=== PATIENT | female | born 1935 | race Caucasian/White ===

== ENCOUNTER 2017-09-13 06:54 | Emergency (ER) | payer OTHER ==
[~2017-09-13] VITALS: Ht 162.6 cm; Wt 70.3 kg
[~2017-09-13 06:54] MED LIST: ADULT LOW DOSE81 MG PO; AMOXICILLIN 50500 M1 PO; ASPRIMOX 325 M325 MG PO; AZITHROMYCIN 2250 MG PO; CALCIUM OYSTER500 MG; CALCIUM PO; CENTRUM SILVER1 EAC1 PO; CRESTOR10 MG PO; FISH OIL 1,0001 EAC5; FISHOIL PO; FLECAINIDE ACE100 MG PO; KLOR-CON 1010 MEQ PO; MULTIVITAMINS; POTASSIUM20; PRADAXA150 MG PO; PROPAFENONE HC300 MG PO; PROZAC 20 MG20 M1 PO; REQUIP 1 MG TABL1 M1 PO; RESTORIL30 MG PO; SYNTHROID50 MCG PO; TOPROL XL25 MG PO; VESICARE10 M1 PO
[2017-09-13] MEDS ORDERED: PACERONE 200 M200 M1 PO (07:08)
[2017-09-13] MEDS ORDERED: PROZAC20 MG PO (07:08)
[2017-09-13] MEDS ORDERED: RESTORIL30 MG PO (07:09)
[2017-09-13] MEDS ORDERED: XARELTO20 MG PO (07:09)
[2017-09-13] MEDS ORDERED: NORCO 5-325 TA1 EACH PO (07:41)
[2017-09-13 08:23] VITALS: BP 150/75
== END 2017-09-13 08:30 | disposition home or self-care (01) ==
LOC: ER 06:54
DX: S62.101A Fracture of unspecified carpal bone, right wrist, initial encounter for closed fracture (principal); M79.7 Fibromyalgia; Z90.49 Acquired absence of other specified parts of digestive tract; W10.8XXA Fall (on) (from) other stairs and steps, initial encounter; Y93.01 Activity, walking, marching and hiking; Y92.89 Other specified places as the place of occurrence of the external cause; Y99.8 Other external cause status

== ENCOUNTER 2018-08-20 05:53 | Emergency (ER) | payer OTHER ==
[~2018-08-20] VITALS: Ht 165.1 cm; Wt 71.2 kg
[~2018-08-20 05:53] MED LIST changes: +GABAPENTIN 100100 MG PO; +MORPHINE SULFAT15 M3 PO; +NORCO 5-325 TA1 EACH PO; +PACERONE 200 M200 M1 PO; +PREDNISONE 20 M20 MG PO; +PROZAC20 MG PO; +XARELTO20 MG PO
[2018-08-20] MEDS ORDERED: NORCO 7.5-3251 EACH PO (07:04)
[2018-08-20] MEDS ORDERED: PREDNISONE 20 M20 MG PO (07:04)
[2018-08-20 07:21] VITALS: BP 178/76
== END 2018-08-20 07:38 | disposition home or self-care (01) ==
LOC: ER 05:53
DX: M54.12 Radiculopathy, cervical region (principal)

== ENCOUNTER 2019-02-21 00:01 | Inpatient (IN) | payer OTHER ==
[~2019-02-21] VITALS: Ht 165.1 cm; Wt 71.5 kg
--- NOTE | ~2019-02-21 | HC ---
[facility] [place] [address] CONSULTATION Name: MINH THOMAS Room #: 429-P [facility] IN M.R.#: [id number] Admission: 02/21/19 ������������������ Attend Phys: Darek Carrera MD Discharge: ������������������ Date of : 33 Report #: [id number] THIS REPORT FOR: //name// CC: Darek Turpincaridad Graciaaker DATE OF SERVICE: 02/27/2019 HISTORY OF PRESENT ILLNESS: The patient is an 83-year-old white female, originally admitted to [facility] on 02/21/2019 with lower abdominal pain. She was diagnosed with small-bowel obstruction. She was noted to have atrial fibrillation converted to normal sinus rhythm. She developed acute hypoxic respiratory failure, likely community-acquired pneumonia. She was noted to complain of right-sided weakness and has been sent down for a CT scan of the brain. She is unable to undergo an MRI scan due to a prior defibrillator. She has had a significant decline in her functional abilities and we are seeing her in rehabilitation medicine consultation. PAST MEDICAL HISTORY: Includes bleeding gastric ulcer, atrial fibrillation, heart valve repair, depression, appendectomy, colitis, and hyperlipidemia. MEDICATIONS: Please see the full medication listing as noted. HABITS: No history of tobacco or alcohol abuse. SOCIAL HISTORY: She lives in an apartment with her , Femi Vail, no steps. She did not utilize gait aids within the apartment, but did use a walker out to the dining area. REVIEW OF SYSTEMS: No current complaints of chest pain, shortness of breath or abdominal discomfort. Denies any fever or chills. She has some weakness at the right side as noted. PHYSICAL EXAMINATION: GENERAL: An 83-year-old white female, in no obvious distress. She is alert. VITAL SIGNS: Last recorded temperature is 97.6, pulse 66, respirations 17, blood pressure 141/58. NEUROMUSCULOSKELETAL: The patient is alert. No obvious visual field neglect to confrontation. Facies appeared symmetric. She does have considerable ecchymosis over her anterior chest and neck area. She has the incision, which is well healed on the left superior chest from the defibrillator. Functional range of motion of the upper extremities. Strength appears to be a grade 4-/5 in both right upper and left upper extremity. DTRs are trace. Lower extremities with no focal calf swelling. She has an old right knee incision that is well healed. Strength is probably grade 4-/5. DTRs are trace to 1. Functionally, she was mod assist with sit to stand. Gait was 40 feet min assist [address] [address] CONSULTATION Name: MINH THMOAS Room #: 429-P [facility] IN M.R.#: [id number] Admission: 02/21/19 ������������������ Attend Phys: Darek Carrera MD Discharge: ������������������ Date of : 33 Report #: [id number] with a front-wheeled walker as of 02/24/2019. She is currently on 2 liters nasal prong O2. ASSESSMENT: An 83-year-old white female with the following problem list: 1. Right-sided weakness, question clinical cerebrovascular accident. Workup is underway and Neurology has been consulted. 2. Small-bowel obstruction. 3. Acute hypoxic respiratory failure with likely pneumonia. 4. Atrial fibrillation with conversion to normal sinus rhythm. 5. History of gastric bleeding ulcer. 6. Depression and anxiety. 7. History of colitis. 8. Hyperlipidemia. 9. Heart valve repair. PLAN: Workup is underway as noted. We have multiple publicity consultant physicians that are following along with her with Infectious Disease, Surgery, Internal Medicine, and Neurology. She certainly may be a candidate for a short acute in-hospital inpatient rehabilitation stay to further maximize her functional independence while the multiple publicity consultant physicians can follow along with her while she is on the rehab son. We will be glad to follow along with you regarding her rehab therapy needs. Discussion with the patient and her . ��������������������������������������������� ���������������������������������������� By: ��������������������������������������������� 1422 0557 Young Arellano MD /nt
[~2019-02-21 00:01] MED LIST changes: +NORCO 7.5-3251 EACH PO
[2019-02-21 00:05] VITALS: BP 136/63
[2019-02-21 00:35] LABS: ABSOLUTE NEUTROPHILS 7.9 thou/uL (1.4-8.2); BASOPHILS 0.6 % (0.0-2.0); EOSINOPHILS 0.7 % (0.0-3.0); HEMATOCRIT 41.3 % (37.0-47.0); LYMPHOCYTES 7.9 % (24.0-44.0); MCH 29.1 pg (26.0-34.0); MCHC 33.9 g/dL (28.0-37.0); MONOCYTES 5.3 % (1.0-8.0); PLATELET COUNT 204 thou/uL (150-400); POLYS 85.5 % (36.0-66.0); RDW 16.9 % (10.5-14.5); WBC 9.2 thou/uL (4.0-11.0)
[2019-02-21 00:42] LABS: URINE BILIRUBIN NEGATIVE (Negative); URINE BLOOD NEGATIVE (Negative); URINE CLARITY CLEAR; URINE COLOR YELLOW; URINE GLUCOSE-RANDOM* NEGATIVE (Negative); URINE KETONES TRACE (Negative); URINE LEUKOCYTES TRACE (Negative); URINE NITRITE NEGATIVE (Negative); URINE PROTEIN (DIPSTICK) NEGATIVE (Negative)
[2019-02-21 00:47] LABS: CALCIUM 9.9 mg/dL (8.5-10.1); CREATININE 0.8 mg/dL (0.6-1.0); POTASSIUM 3.6 mmol/L (3.5-5.1)
[2019-02-21 00:53] LABS: ALBUMIN 3.9 g/dL (3.4-5.0); TOTAL BILIRUBIN 0.7 mg/dL (<0.1-1.0); TOTAL PROTEIN 7.5 g/dL (6.4-8.2)
[2019-02-21 04:42] VITALS: BP 143/70
--- NOTE | 2019-02-21 07:41 | EKG ---
[place] [address] [facility] [place] [address] ELECTROCARDIOGRAM REPORT Name: MINH THOMAS Room #: 357-P ADM IN M.R.#: [id number] ������������������ Admission: 02/21/19 ������������������ Attend Phys: Jessie Murrell Discharge: ������������������ Date of : 31 Report #: [id number] ����������������������������������������������������������������� [id number] THIS REPORT FOR: //name// 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: ROLA : 1935 Requested By: Hawa Aguirre Order Number: [id number] MD: Jose Alvarez Measurements Intervals [place] Rate: 67 P: 262 TN: 229 QRS: -54 QRSD: 109 T: 84 QT: 453 QTc: 479 Interpretive Statements Sinus or ectopic atrial rhythm Prolonged TN interval Incomplete RBBB and LAFB Compared to ECG 05/27/2018 06:51:46 Ectopic atrial rhythm now present Incomplete right bundle-branch block now present RSR' in V1 or V2 now present QT interval has lengthened Electronically Signed On 02-21-2019 7:41:37 CDT by Jose Alvarez [email or web address] ��������������������������������������������� <ELECTRONICALLY SIGNED> ���������������������������������������� By: Jose Alvarez MD, [facility] ��������������������������������������������� 02/21/19 0741 0021 0021 Jose Alvarez MD, [facility] /EPI
[2019-02-21 16:38] VITALS: BP 149/75
[2019-02-21 20:22] VITALS: BP 150/64
[2019-02-22 03:32] VITALS: BP 109/45
[2019-02-22 05:45] LABS: HEMATOCRIT 42.3 % (37.0-47.0); HEMOGLOBIN 14.3 gm/dL (12.0-15.0); MCH 29.4 pg (26.0-34.0); MCHC 33.9 g/dL (28.0-37.0); MCV 86.8 fL (80.0-100.0); RBC 4.87 mil/uL (4.20-5.00); RDW 16.7 % (10.5-14.5); WBC 3.8 thou/uL (4.0-11.0)
[2019-02-22 06:00] LABS: CALCIUM 8.7 mg/dL (8.5-10.1); CREATININE 0.6 mg/dL (0.6-1.0); POTASSIUM 3.5 mmol/L (3.5-5.1)
[2019-02-22 07:19] LABS: BE(vivo) -8.8 mmol/L (-2 to +3); HCO3 17.3 mmol/L (22.0-26.0); PCO2 38.3 mmHg (35.0-45.0); sO2 85.2 % (92.0-98.0)
[2019-02-22 07:21] LABS: PO2 55.6 mmHg (80.0-100.0); pH 7.273 (7.360-7.450)
[2019-02-22 08:06] VITALS: BP 153/73; BP 96/44
--- NOTE | 2019-02-22 08:17 | EKG ---
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: ALYSSA : 1935 Requested By: Gordon Farley Order Number: [id number] MD: Salinas Cardenas Measurements Intervals [place] Rate: 70 P: 210 NH: 256 QRS: -71 QRSD: 142 T: 11 QT: 563 QTc: 608 Interpretive Statements Sinus or ectopic atrial rhythm Prolonged [place] interval RBBB and LAFB Compared to ECG 02/21/2019 00:21:21 Incomplete right bundle-branch block no longer present Electronically Signed On 02-22-2019 8:17:05 CDT by Salinas Cardenas [email or web address] ��������������������������������������������� <ELECTRONICALLY SIGNED> ���������������������������������������� By: Salinas Cardenas MD ��������������������������������������������� 02/22/19 0817 0 0 Salinas Cardenas MD /EPI
[2019-02-22 08:34] LABS: BE(vivo) -5.2 mmol/L (-2 to +3); HCO3 20.4 mmol/L (22.0-26.0); PCO2 40.4 mmHg (35.0-45.0); PO2 123.1 mmHg (80.0-100.0); sO2 98.2 % (92.0-98.0)
[2019-02-22 08:36] LABS: pH 7.322 (7.360-7.450)
--- NOTE | 2019-02-22 16:01 | 2DMMODE ---
[facility] [place] [address] 2 D/M-MODE ECHOCARDIOGRAM Name: MINH THOMAS Room #: 357-P ADM IN ..#: [id number] ������������� Admission: 02/21/19 ������������� Attend Phys: Darek Carrera MD Discharge: ��� ������������� ��� Date of : 31 Date of Service: 02/22/19 1601 �� Report #: [id number] �������� ��������������������������������������������[id number] THIS REPORT FOR: //name// APPROVED REPORT Study performed: 02/22/2019 15:03:45 EXAM: Comprehensive 2D, Doppler, and color-flow Echocardiogram Status: routine BSA: 1.78 HR: 59 bpm BP: 96/44 mmHg Rhythm: Pacemaker Other Information Study Quality: Fair Technically limited study due to body habitus, rib artifact. Indications Short of breath. Hx: MV repair, defibrillator, Afib. 2D Dimensions RVDd: 34.80 mm IVSd: 9.61 (7-11mm) LVOT Diam: 19.39 (18-24mm) LVDd: 43.01 mm PWd: 9.75 (7-11mm) Ascending Ao: 32.60 (22-36mm) LVDs: 26.19 (25-40mm) Aortic Root: 30.41 mm Volumes Left Atrial Volume (Systole) Single Plane 4CH: 63.69 mL Single Plane 2CH: 64.80 mL LA ESV Index: 39.00 mL/m2 Aortic Valve AoV Peak Miko.: 2.41 m/s AO Peak Gr.: 23.26 mmHg Mitral Valve MV Decel. Time: 340.14 ms MV PHT: 97.73 ms MVA (PHT): 2.25 cm2 [facility] [place] [address] 2 D/M-MODE ECHOCARDIOGRAM Name: MINH THOMAS Room #: 357-P ADM IN .R.#: [id number] ������������� Admission: 02/21/19 ������������� Attend Phys: Darek Carrera MD Discharge: ��� ������������� ��� Date of : 31 Date of Service: 02/22/19 1601 �� Report #: [id number] �������� ��������������������������������������������[id number] Pulmonary Valve PV Peak Miko.: 0.90 m/s PV Peak Gr.: 3.22 mmHg Tricuspid Valve TR Peak Miko.: 3.47 m/s TR Peak Gr.: 48.05 mmHg Left Ventricle The left ventricle is normal size. There is normal LV segmental wall motion. There is normal left ventricular wall thickness. Possible LVOT obstruction caused by systolic anterior motion of the mitral valve leaflet. Difficult to accurately assess gradients vs. mitral regurgitation jet. Left ventricular systolic function is hyperdynamic. LVEF is 65-70%. This study is not technically sufficient to allow evaluation of the LV diastolic function. Right Ventricle The right ventricle is normal size. The right ventricular systolic function is normal. Device lead is present in the right ventricle. Atria Left atrium is mildly dilated. Right atrium is mildly dilated. Aortic Valve Aortic valve is trileaflet, mildly thickened and calcified. Mild aortic regurgitation. There is no aortic valvular stenosis. Mitral Valve History of MV repair. Mean pressure gradient of 5mmHg. Mild to moderate mitral regurgitation. Tricuspid Valve The tricuspid valve is normal in structure. Mild to moderate tricuspid regurgitation. Estimated PAP 48mmHg plus the right pressure. Pulmonic Valve The pulmonary valve is normal in structure. Trace pulmonic regurgitation. Great Vessels The aortic root is normal in size. The ascending aorta is normal in size. IVC is not well visualized. Pericardium [facility] [address] [place] [address] 2 D/M-MODE ECHOCARDIOGRAM Name: MINH THMOAS Room #: 357-P ADM IN M.R.#: [id number] ������������� Admission: 02/21/19 ������������� Attend Phys: Darek Carrera MD Discharge: ��� ������������� ��� Date of : 31 Date of Service: 02/22/19 1601 �� Report #: [id number] �������� ��������������������������������������������[id number] There is no pericardial effusion. <Conclusion> The left ventricle is normal size. LVEF is 65-70%. Device lead is present in the right ventricle. Left atrium is mildly dilated. Right atrium is mildly dilated. Aortic valve is trileaflet, mildly thickened and calcified. Mild aortic regurgitation. History of MV repair. Mean pressure gradient of 5mmHg. Mild to moderate mitral regurgitation. The tricuspid valve is normal in structure. Mild to moderate tricuspid regurgitation. Estimated PAP 48mmHg plus the right pressure. The pulmonary valve is normal in structure. Trace pulmonic regurgitation. There is no pericardial effusion. ��������������������������������������������� <ELECTRONICALLY SIGNED> ���������������������������������������� By: Homer Benson MD ��������������������������������������������� 02/22/191600 00 00 Homer Benson MD /INF
[2019-02-22 19:25] VITALS: BP 98/40
[2019-02-23 03:35] VITALS: BP 107/40
[2019-02-23 07:16] VITALS: BP 106/35
[2019-02-23 15:13] VITALS: BP 116/48
[2019-02-23 19:30] VITALS: BP 124/50
[2019-02-24 04:00] VITALS: BP 132/49
[2019-02-24 07:10] VITALS: BP 140/70
[2019-02-24 13:13] VITALS: BP 138/59
[2019-02-24 16:45] LABS: HEMATOCRIT 32.9 % (37.0-47.0); HEMOGLOBIN 11.1 gm/dL (12.0-15.0); MCH 29.1 pg (26.0-34.0); MCHC 33.7 g/dL (28.0-37.0); MCV 86.1 fL (80.0-100.0); RBC 3.82 mil/uL (4.20-5.00); RDW 16.6 % (10.5-14.5); WBC 7.7 thou/uL (4.0-11.0)
[2019-02-24 16:52] LABS: CALCIUM 8.6 mg/dL (8.5-10.1); CREATININE 0.6 mg/dL (0.6-1.0); MAGNESIUM 1.8 mg/dL (1.8-2.4); POTASSIUM 3.2 mmol/L (3.5-5.1)
[2019-02-24 16:53] VITALS: BP 120/54
[2019-02-24 19:15] VITALS: BP 144/64
[2019-02-25 06:07] LABS: HEMOGLOBIN 10.6 gm/dL (12.0-15.0); MCH 29.3 pg (26.0-34.0); MCHC 34.3 g/dL (28.0-37.0); MCV 85.4 fL (80.0-100.0); RBC 3.63 mil/uL (4.20-5.00); RDW 16.4 % (10.5-14.5)
[2019-02-25 06:13] LABS: CALCIUM 8.5 mg/dL (8.5-10.1); CREATININE 0.5 mg/dL (0.6-1.0); MAGNESIUM 1.9 mg/dL (1.8-2.4); POTASSIUM 3.5 mmol/L (3.5-5.1)
[2019-02-25 07:40] VITALS: BP 120/56
[2019-02-25 11:00] VITALS: BP 135/61
[2019-02-25 16:17] VITALS: BP 132/47
[2019-02-25 20:30] VITALS: BP 141/55
[2019-02-26 04:55] VITALS: BP 135/57
[2019-02-26 08:17] VITALS: BP 147/61
[2019-02-26 09:15] VITALS: BP 147/61
--- NOTE | 2019-02-26 09:29 | HC ---
[facility] [place] [address] CONSULTATION Name: MINH THOMAS Room #: 429-P [facility] IN M.R.#: [id number] Admission: 02/21/19 ������������������ Attend Phys: Darek Carrera MD Discharge: ������������������ Date of : 33 Report #: [id number] THIS REPORT FOR: //name// CC: Darek Turpincaridad Graciaaker DATE OF SERVICE: 02/23/2019 REASON FOR CONSULTATION: Evaluate pneumonia. HISTORY OF PRESENT ILLNESS: This is an 83-year-old who presents to the Emergency Room with a 3-day history of abdominal pain, which was diffuse and persistent, associated with radiation to her back. She rated the pain at most up to a 7. She had 2 episodes of nausea and vomiting. She vomited once in her bed. She did not describe any gross aspiration. She has had some bowel movements without blood or diarrhea. She is anticoagulated on Xarelto previously for her heart valve repair. However, she has been off it for approximately 2 months. During this time, she has had no cough or sputum production. Cough started on the day of admission. She is not typically on oxygen at home, now on 3 liters. She has had no pleuritic chest pain. No hemoptysis. Following admission, she was placed on azithromycin and ceftriaxone. Further evaluation showed evidence of a partial small-bowel obstruction. She denies any dysuria or frequency. She has had no rash or decubiti. She has noticed no lymphadenopathy. No other bleeding issues. No psychiatric issues, seizure disorder or stroke. REVIEW OF SYSTEMS: A 10-point review of systems is negative other than what is described above. ALLERGIES: None known. MEDICATIONS: As noted on her MAR including ceftriaxone, azithromycin. PAST MEDICAL HISTORY: Cervical radiculopathy, fibromyalgia, gastric ulcer, appendectomy, colitis, cataract surgery, right knee surgery, finger surgery, defibrillator placement, atrial fibrillation, depression, anxiety, hypothyroidism, heart valve repair. FAMILY HISTORY: Noncontributory. SOCIAL HISTORY: Nonsmoker, minimal alcohol intake. PHYSICAL EXAMINATION: VITAL SIGNS: Afebrile and hemodynamically stable. Alert and cooperative. On 3 liters of oxygen per nasal cannula. SKIN: Without rash or decubitus. She had ecchymosis involving her right chin [facility] [address] [place] [address] CONSULTATION Name: MINH THOMAS Room #: 429-P ADM IN M.R.#: [id number] Admission: 02/21/19 ������������������ Attend Phys: Darek Carrera MD Discharge: ������������������ Date of : 33 Report #: [id number] and neck region from a previous fall several weeks ago. HEENT: Eyes, without scleral icterus. Mouth without mucositis. NECK: Supple, with no thyromegaly or mass. No JVD. LUNGS: Coarse sounds posterior in the bases bilaterally. No consolidation. HEART: Regular, without murmur, gallop or rub. ABDOMEN: Moderately distended without mass or hepatosplenomegaly. No guarding or rebound. GENITAL AND RECTAL: Not performed. BACK: With no CVA tenderness or spinal tenderness. EXTREMITIES: Without clubbing, cyanosis or edema. NEUROLOGIC: Cranial nerves intact. Strength in her upper and lower extremities was normal. Sensation in the upper and lower extremities normal. Mood normal. LABORATORY STUDIES: CT scan of the chest showed bilateral lower lobe infiltrates with a right upper lobe infiltrate. Abdomen showed evidence of ileus. Procalcitonin less than 0.5. BNP 631. Hemoglobin 14.3, white count 13.8, platelet count 245,000. Sodium 138, potassium 3.5, bicarbonate 24, creatinine 0.6, AST 66, ALT 72, bilirubin 0.7. Lipase 52. Urinalysis unremarkable. Blood cultures are negative. IMPRESSION: An 83-year-old with partial small-bowel obstruction and pneumonia. I suspect aspiration is the etiology of her pulmonary infiltrates. She did have an episode of vomiting prior to her admission. It appears that the cough and respiratory complaints followed her abdominal obstruction symptoms. In addition, has underlying hypothyroidism, valvular repair, atrial fibrillation, anxiety and depression, controlled. RECOMMENDATIONS: We will continue with azithromycin and switch ceftriaxone to Unasyn. This will cover intra-abdominal pathogens as well as good aspiration coverage. Await sputum culture, blood cultures and also check urine antigens for completeness. Await surgical followup regarding her GI issues. ��������������������������������������������� <ELECTRONICALLY SIGNED> ���������������������������������������� By: Beryr Manuel MD ��������������������������������������������� 02/26/19 0929 [id number] Berry Manuel MD /nt
[2019-02-26 19:37] VITALS: BP 139/51
[2019-02-27 04:22] VITALS: BP 141/56
[2019-02-27 07:33] VITALS: BP 141/58
[2019-02-27 16:34] VITALS: BP 121/47
[2019-02-27 20:24] VITALS: BP 116/44
[2019-02-28 06:06] VITALS: BP 128/86
[2019-02-28 07:45] VITALS: BP 122/54
[2019-02-28 10:47] LABS: MCH 28.7 pg (26.0-34.0); MCHC 33.5 g/dL (28.0-37.0); MCV 85.8 fL (80.0-100.0); RBC 4.19 mil/uL (4.20-5.00); RDW 16.4 % (10.5-14.5); WBC 6.1 thou/uL (4.0-11.0)
[2019-02-28 11:08] LABS: CALCIUM 9.1 mg/dL (8.5-10.1); CREATININE 0.7 mg/dL (0.6-1.0); MAGNESIUM 1.9 mg/dL (1.8-2.4)
[2019-02-28 16:45] VITALS: BP 115/37
[2019-02-28 20:00] VITALS: BP 120/54
[2019-03-01 04:30] VITALS: BP 118/50
[2019-03-01 05:54] LABS: HEMATOCRIT 32.4 % (37.0-47.0); HEMOGLOBIN 11.1 gm/dL (12.0-15.0); MCHC 34.2 g/dL (28.0-37.0); MCV 84.9 fL (80.0-100.0); RBC 3.82 mil/uL (4.20-5.00); RDW 16.5 % (10.5-14.5); WBC 4.8 thou/uL (4.0-11.0)
[2019-03-01 05:56] LABS: CALCIUM 8.5 mg/dL (8.5-10.1); CREATININE 0.6 mg/dL (0.6-1.0)
[2019-03-01 08:26] VITALS: BP 118/50
[2019-03-01 11:59] LABS: TSH 5.993 uIU/mL (0.358-3.740)
[2019-03-01] MEDS ORDERED: AUGMENTIN 875-1 EACH PO (14:00)
[2019-03-01] MEDS ORDERED: ALBUTEROL2.5 MG/31 INH (14:00)
[2019-03-01] MEDS ORDERED: ASPIR 8181 MG PO (14:00)
[2019-03-01] MEDS ORDERED: MUCINEX600 MG PO (14:00)
[2019-03-01] MEDS ORDERED: MIRALAX17 GM PO (14:05)
--- NOTE | 2019-03-01 14:33 | HC ---
[facility] [address] CONSULTATION Name: MINH THOMAS Room #: 429-P [facility] IN M.R.#: [id number] Admission: 02/21/19 ������������������ Attend Phys: Darek Carrera MD Discharge: ������������������ Date of : 33 Report #: [id number] THIS REPORT FOR: //name// CC: Darek Craftayse Plata DATE OF SERVICE: 02/27/2019 HISTORY OF PRESENT ILLNESS: This is an 83-year-old female patient who was evaluated by me for right-sided weakness. The patient initially indicated that she is having weakness in the right leg, but then indicated she has weakness in the right upper extremity also. I reviewed the patient's record and it looks like she was having abdominal and back pain and generalized weakness when she was admitted. It was associated with sleep difficulty. She has bruises on her neck and she indicated that happened when this patient hit something. REVIEW OF SYSTEMS: Indicates that she has a history of atrial fibrillation, but looks like she has stopped taking her anticoagulation a few weeks ago for some reason. She does have a defibrillator. She has a history of fibromyalgia, heart valve problems, bleeding ulcer. This was her relevant 14-point review of system. PAST MEDICAL HISTORY: As per record is positive for atrial fibrillation. EKG in the Emergency Room demonstrated sinus rhythm. FAMILY HISTORY: Negative for early age stroke. SOCIAL HISTORY: She indicates she does not smoke. PHYSICAL EXAMINATION: Indicates she is alert and responsive. Her speech looks unremarkable. Cranial nerve examination 2-12 looks unremarkable. She is weak in the right upper and right lower extremity. She indicates she can feel touch on both sides, but that is difficult to be certain. There is no cerebellar sign. There is no meningeal sign. She is not complaining of any neck pain. Cardiac examination is unremarkable. She does have rhonchi on both sides. Blood pressure is 121/47, respirations 12, pulse is 65 and temperature is 97.6. LABORATORY DATA: White count is 6.0. She had multiple studies done. She had a CT angiography of the head and the neck and CT of the head that does not show any definite abnormalities. She also had a CT of the abdomen. I suspect that looked at the spine, but I would like to talk to the radiologist to make sure her C-spine as seen on CT angiogram and her lumbar spine as seen on the patient's abdominal CT was okay. IMPRESSION: It is not clear what the etiology of the patient's symptom is. She needs some further workup. If she is not on anticoagulation, then she is [address] [address] CONSULTATION Name: MINH THOMAS Room #: 429-P ADM IN M.R.#: [id number] Admission: 02/21/19 ������������������ Attend Phys: Darek Carrera MD Discharge: ������������������ Date of : 33 Report #: [id number] predisposed to stroke from embolization. Spine pathology needs to be excluded. Multiple aspects of her care need to be discussed and we will discuss with you. I discussed with the patient to some extent that we will be doing all this workup and talking to the primary care. Time spent 35 minutes and majority of that time counseling and coordinating her care. ��������������������������������������������� <ELECTRONICALLY SIGNED> ���������������������������������������� By: Henry Santillan MD ��������������������������������������������� 03/01/19 1433 1807 0824 Henry Santillan MD /nt
== END 2019-03-01 15:59 | DRG 388 ==
LOC: ER 00:01 → EROBS 04:28 → 3W 04:28 → 4E 02-25 13:45
PROVIDERS: Emergency Medicine; Internal Medicine; Nurse Practitioner Family; ADMIT Hospitalist
PROC: 5A09357 Assistance with Respiratory Ventilation, Less than 24 Consecutive Hours, Continuous Positive Airway Pressure (ICD-10-PCS; principal; 2019-02-22)
DX: K56.690 Other partial intestinal obstruction (principal); J96.01 Acute respiratory failure with hypoxia; J18.9 Pneumonia, unspecified organism; I48.91 Unspecified atrial fibrillation; M79.7 Fibromyalgia; G47.00 Insomnia, unspecified; E78.5 Hyperlipidemia, unspecified; E03.9 Hypothyroidism, unspecified; F32.9 Major depressive disorder, single episode, unspecified; F41.9 Anxiety disorder, unspecified; Z79.899 Other long term (current) drug therapy; Z79.01 Long term (current) use of anticoagulants; Z98.49 Cataract extraction status, unspecified eye; Z90.89 Acquired absence of other organs; Z87.19 Personal history of other diseases of the digestive system; Z95.810 Presence of automatic (implantable) cardiac defibrillator; Z87.11 Personal history of peptic ulcer disease; Z95.2 Presence of prosthetic heart valve; Z91.81 History of falling
CPT/HCPCS: 10783; 10879

== ENCOUNTER → 2021-04-03 | Outpatient (CLI) | payer OTHER ==
[~2021-04-03] MED LIST changes: +ALBUTEROL2.5 MG/31 INH; +ASPIR 8181 MG PO; +AUGMENTIN 875-1 EACH PO; +MIRALAX17 GM PO; +MUCINEX600 MG PO; +TYLENOL325 MG PO
== END ==
LOC: RAD 10:31
PROVIDERS: ATTEND Family Medicine
DX: M17.0 Bilateral primary osteoarthritis of knee (principal); M25.462 Effusion, left knee; M25.461 Effusion, right knee

== ENCOUNTER 2021-04-04 12:58 | Emergency (ER) | payer OTHER ==
[~2021-04-04] VITALS: Ht 165.1 cm; Wt 72.6 kg
--- NOTE | ~2021-04-04 | EMS ---
[address] [address] EMS Patient Care Report Name: MINH THOMAS Room #: REG DEONTE Carias#: [id number] Admission: 04/04/21 Attend Phys: Discharge: Date of : 33 Report #: [id number] THIS REPORT FOR: //name// Report Transmitted: 04/04/2021 13:12 EMS Care Summary [place], [place]/[facility] Incident [id number] @ 04/04/2021 12:24 Incident Location [address] [facility] Patient MINH THOMAS Female, 86 Years 1935 Patient Address [address] [place] [address] Patient History Cardiac Condition - Other,Hypothyroidism, Patient Allergies No known allergies, Patient Medications Rosuvastatin, Fluoxetine, Temazepam, Tylenol, Amiodarone, Levothyroxine, Chief Complaint HEAD LAC Disposition Transported No Lights/[place] Dispatch Reason Falls Transported To [facility] Narrative RESPONDED TO FALL AT [place]. PT FOUND LAYING SUPINE ON FLOOR ALERT AND ORIENTED. PT REPORTS PT FELL AND HIT HER HEAD ON RELCINING HANDLE PIECE OF RECLINER. PT HAS GOOSE EGG BUMP FORMING TO THE BACK OF HER HEAD WITH MILD [address] [address] EMS Patient Care Report Name: MINH THOMAS Room #: REG DEONTE Carias#: [id number] Admission: 04/04/21 Attend Phys: Discharge: Date of : 33 Report #: [id number] BLEEDING. PT HEAD WAS WRAPPED WITH 4X4 AND KERLIX. PT DENIES LOC OR BLOOD THINNERS. PT DENIES NECK PAIN BUT REPORTS CHRONIC BACK PAIN TO MIDDLE BACK. PT ASSISTED TO COT AND SEATBELTS APPLIED. PT VITALS AND IV OBTAINED. PT TRANSPORTED TO [facility] WITH NO CHANGES. PT TEAM LIFTED TO BED AND HANDRAILS UP. REPORT GIVEN TO NURSE. Initial Vitals @12:49P: 83,R: 18,BP: 149/84,SpO2: 94, @12:45P: 109,R: 18,BP: 138/85,Pain: 2/10,GCS: 15,Glucose: 131,SpO2: 95,Revised Trauma: 12, Assessments @12:44MENTAL:Person Oriented,Time Oriented,Place Oriented,Event Oriented,SKIN:HEENT:Head/Face: Swelling,Neck/Airway: No Abnormalities,LUNG SOUNDS:General: No Abnormalities,Left Upper: No Abnormalities,Right Upper: No Abnormalities,Left Lower: No Abnormalities,Right Lower: No Abnormalities,ABDOMEN:General: No Abnormalities,Left Upper: No Abnormalities,Right Upper: No Abnormalities,Left Lower: No Abnormalities,Right Lower: No Abnormalities,PELVIS//GI:No Abnormalities,EXTREMITIES:Left Arm: No Abnormalities,Right Arm: No Abnormalities,Left Leg: No Abnormalities,Right Leg: No Abnormalities,PULSE:NEURO:No Abnormalities, Impression Injury of Head Procedures @12:43ALS AssessmentResponse: UnchangedSucceeded@12:46C-Spine ClearanceResponse: Unchanged@12:50Saline Lock 5cc (20 ga) Site: Forearm-RightResponse: UnchangedSucceeded@12:48StretcherResponse: Unchanged@12:47BandagingResponse: UnchangedSucceeded Timeline 12:22,Call Received 12:22,Dispatch Notified 12:24,Dispatched 12:25,En Route 12:30,On Scene 12:43,At Patient 12:43,ALS Assessment,Response: UnchangedSucceeded, 12:45,BP: 138/85 M,PULSE: 109,RR: 18 R,SPO2: 95 Ox,ETCO2: ,B,PAIN: 2,GCS: 15, 12:46,C-Spine Clearance,Response: Unchanged 12:47,Bandaging,Response: UnchangedSucceeded, 12:48,Stretcher,Response: Unchanged 12:49,BP: 149/84 M,PULSE: 83,RR: 18 R,SPO2: 94 Ox,ETCO2: ,BG: ,PAIN: ,GCS: , 12:50,Saline Lock 5cc 20 ga Site: Forearm-Right,Response: UnchangedSucceeded, [facility] [address] [place] [address] EMS Patient Care Report Name: MINH THOMAS Room #: JUDAH Carias#: [id number] Admission: 04/04/21 Attend Phys: Discharge: Date of : 31 Report #: [id number] 12:50,Depart Scene 12:55,At Destination 13:09,Call Closed Disclaimer v1.1 Copyright 2020 Commissioner This EMS Care Summary contains data elements from the applicable legal record (which may be displayed differently). It is designed to provide pertinent information for the following purposes: continuity of care, clinical quality, and state data reporting. The complete legal record is available to ED staff and administrators of the receiving hospital in ES's Patient Tracker. All data is provided "as is."
[~2021-04-04 12:58] MED LIST changes: -TYLENOL325 MG PO
[2021-04-04] MEDS ORDERED: TYLENOL325 MG PO (13:06)
[2021-04-04 13:52] VITALS: BP 149/65
== END 2021-04-04 14:33 | disposition home or self-care (01) ==
LOC: ER 12:58
DX: S00.03XA Contusion of scalp, initial encounter (principal); S09.8XXA Other specified injuries of head, initial encounter; M79.7 Fibromyalgia; I48.91 Unspecified atrial fibrillation; E03.9 Hypothyroidism, unspecified; K21.9 Gastro-esophageal reflux disease without esophagitis; Z90.89 Acquired absence of other organs; Z98.890 Other specified postprocedural states; W01.198A Fall on same level from slipping, tripping and stumbling with subsequent striking against other object, initial encounter; Y93.89 Activity, other specified; Y92.89 Other specified places as the place of occurrence of the external cause; Y99.8 Other external cause status